=== PATIENT | female | born 1970 | race Caucasian/White ===

== ENCOUNTER 2018-11-06 08:00 | Outpatient (CLI) | payer OTHER ==
[2018-11-06 19:39] LABS: EOSINOPHILS # (AUTO) 0.1 10^3/uL (0.0-0.7); HGB - HEMOGLOBIN 9.2 g/dL (12.0-16.0); LYMPHOCYTES % (AUTO) 22.7 %; MEAN CORPUSCULAR HEMOGLOBIN 24.4 pg (27.0-31.0); MEAN CORPUSCULAR HGB CONC 30.4 g/dL (32.0-36.0); MEAN CORPUSCULAR VOLUME 80.1 fL (81.0-99.0); MEAN PLATELET VOLUME 10.4 fL (7.9-10.8); MONOCYTES # (AUTO) 0.3 10^3/uL (0.0-1.0); MONOCYTES % (AUTO) 7.4 %; NEUTROPHILS # (AUTO) 2.9 10^3/uL (1.5-6.6); NEUTROPHILS % (AUTO) 66.9 %; PLT - PLATELET COUNT 203 10^3/uL (130-450); RED BLOOD COUNT 3.79 10^6/uL (4.20-5.40); RED CELL DISTRIBUTION WIDTH 16.7 % (12.0-15.0); WHITE BLOOD COUNT 4.4 x10^3/uL (4.8-10.8)
[2018-11-06 20:25] LABS: ALBUMIN 4.2 g/dL (3.2-5.5); ALBUMIN/GLOBULIN RATIO 1.6 (1.0-2.2); ALKALINE PHOSPHATASE 40 IU/L (42-121); ALT ALANINE AMINOTRANSFERASE 12 IU/L (10-60); AST ASPARTATE AMINOTRANSFERASE 17 IU/L (10-42); BILIRUBIN,TOTAL 0.5 mg/dL (0.2-1.0); BUN - BLOOD UREA NITROGEN 10 mg/dL (6-20); CALCIUM 8.8 mg/dL (8.5-10.3); CARBON DIOXIDE - CO2 26 mmol/L (21-32); CHLORIDE 103 mmol/L (101-111); CHOL/HDL RATIO 1.9 (<4.4); CHOLESTEROL 164 mg/dL; CREATININE 0.5 mg/dL (0.4-1.0); GFR - MDRD 133 (>89); GLUCOSE 87 mg/dL (70-100); HDL CHOLESTEROL 86 mg/dL; LDL CHOLESTEROL,CALCULATED 63 mg/dL; LDL/HDL RATIO 0.7 (<4.4); SODIUM 137 mmol/L (135-145); TOTAL PROTEIN 6.9 g/dL (6.7-8.2); VLDL CHOLESTEROL 15 mg/dL
== END 2018-11-06 23:59 | disposition home or self-care (01) ==
LOC: LAB.WCP 08:00
PROVIDERS: ATTEND Family Medicine
DX: R07.89 Other chest pain (principal)
CPT/HCPCS: 36415; 80053; 80061; 83721; 85025

== ENCOUNTER 2022-10-11 10:10 | Day surgery (SDC) | payer OTHER ==
--- NOTE | 2022-10-11 07:59 | ANESTHESIA ---
Pre-Anesthesia VS, & Labs - Diagnosis screening - Procedure colonoscopy Height: 5 ft 7 in - NPO >8 hours Last Fluid Intake: am prep - Is Patient ?: No - Lab Results Lab results reviewed: Yes Home Medications and Allergies Home Medications: Ambulatory Orders Aspirin [[place] Aspirin] 81 mg PO DAILY 10/10/22 Aspirin [[place] Aspirin] 81 mg PO DAILY 10/10/22 Allergies/Adverse Reactions: Allergies Allergy/AdvReac Type Severity Reaction Status Date / Time No Known Drug Allergies Allergy Verified 10/10/22 13:00 Anes History & Medical History - Anesthetic History Anesthesia Complications: reports: No previous complications Family history of Anesthesia Complications: Denies Family history of Malignant Hyperthermia: Denies - Medical History Cardiovascular: reports: Other Pulmonary: reports: None Gastrointestinal: reports: None Urinary: reports: None Musculoskeletal: reports: None Endocrine/Autoimmune: reports: None Skin: reports: None - Surgical History Gynecologic: reports: Tubal ligation Exam General: Alert, Oriented x3, Cooperative Dental: WNL Mouth Openin Fingerbreadth Neck Mobility: Normal Mallampati classification: II Thyromental Distance: 4-6 cm Respiratory: Lungs clear, Normal breath sounds, No respiratory distress Cardiovascular: Regular rate Neurological: Normal speech Mental/Cognitive Status: Alert/Oriented X3, Normal for patient Cognitive Status: Within normal limits Plan Anesthesia Type: Total IV Consent for Procedure(s) Verified and Reviewed: Yes Code Status: Attempt Resuscitation ASA classification: 1-Healthy patient Is this case an emergency?: No
[2022-10-11] MEDS ORDERED: LACTATED RINGERS 1,000 ML IV ONE ×2 (10:54→13:29)
[2022-10-11] MEDS ORDERED: PROPOFOL 500 MG/50 ML 500 MG/50 ML VIAL ONE (11:49)
[2022-10-11] MEDS ORDERED: MIDAZOLAM 2 MG/2 ML VIAL ONE (11:51)
[2022-10-11] MEDS ORDERED: LIDOCAINE-PF 2% 10 ML AMP SUBQ ONE (13:05)
[2022-10-11 13:54] VITALS: BP 114/72
--- NOTE | 2022-10-11 14:43 | ANESTHESIA POST OP EVALUATION ---
Anesthesia Post Eval - Post Anesthesia Eval Vitals: Last Vital Signs Temp 36.7 C 10/11/22 13:29 Pulse 56 L 10/11/22 13:54 Resp 15 10/11/22 13:54 BP 114/72 10/11/22 13:54 Pulse Ox 100 10/11/22 13:54 O2 Flow Rate CV Function Including HR & BP: Stable Pain Control: Satisfactory Nausea & Vomiting: Negative Mental Status: Baseline Respiratory Status: Airway Patent Hydration Status: Satisfactory Anesthesia Complications: None
== END 2022-10-11 10:11 | disposition home or self-care (01) ==
LOC: SDS 10:10
PROVIDERS: ATTEND Surgery
DX: Z12.11 Encounter for screening for malignant neoplasm of colon (principal); K64.9 Unspecified hemorrhoids; Z80.0 Family history of malignant neoplasm of digestive organs
CPT/HCPCS: 45378; J7120

== ENCOUNTER 2022-11-13 12:52 | Outpatient (CLI) | payer OTHER | END 2022-11-13 12:53 | disposition home or self-care (01) | LOC: CAM 12:52 | PROVIDERS: ATTEND Physician Assistant | DX: F41.8 Other specified anxiety disorders (principal) | CPT/HCPCS: 97810; 97811 ==

== ENCOUNTER 2022-12-04 13:00 | Outpatient (CLI) | payer OTHER | END 2022-12-04 13:01 | disposition home or self-care (01) | LOC: CAM 13:00 | PROVIDERS: ATTEND Physician Assistant | DX: F41.8 Other specified anxiety disorders (principal) | CPT/HCPCS: 97810; 97811 ==

== ENCOUNTER 2022-12-25 14:29 | Outpatient (CLI) | payer OTHER | END 2022-12-25 14:30 | disposition home or self-care (01) | LOC: CAM 14:29 | PROVIDERS: ATTEND Physician Assistant | DX: F41.8 Other specified anxiety disorders (principal) | CPT/HCPCS: 97810; 97811 ==

== ENCOUNTER 2023-01-08 15:41 | Outpatient (CLI) | payer OTHER | END 2023-01-08 15:42 | disposition home or self-care (01) | LOC: CAM 15:41 | PROVIDERS: ATTEND Physician Assistant | DX: F41.8 Other specified anxiety disorders (principal) | CPT/HCPCS: 97810; 97811 ==

== ENCOUNTER 2023-01-29 14:26 | Outpatient (CLI) | payer OTHER | END 2023-01-29 14:27 | disposition home or self-care (01) | LOC: CAM 14:26 | PROVIDERS: ATTEND Physician Assistant | DX: F41.8 Other specified anxiety disorders (principal) | CPT/HCPCS: 97810; 97811 ==

== ENCOUNTER 2023-02-12 15:43 | Outpatient (CLI) | payer OTHER | END 2023-02-12 15:44 | disposition home or self-care (01) | LOC: CAM 15:43 | PROVIDERS: ATTEND Physician Assistant | DX: F41.8 Other specified anxiety disorders (principal) | CPT/HCPCS: 97810; 97811 ==

== ENCOUNTER 2023-04-30 13:07 | Outpatient (CLI) | payer OTHER | END 2023-04-30 13:08 | disposition home or self-care (01) | LOC: CAM 13:07 | PROVIDERS: ATTEND Physician Assistant | DX: F41.8 Other specified anxiety disorders (principal) | CPT/HCPCS: 97810; 97811 ==

== ENCOUNTER 2023-06-18 15:41 | Outpatient (CLI) | payer OTHER | END 2023-06-18 15:42 | disposition home or self-care (01) | LOC: CAM 15:41 | PROVIDERS: ATTEND Physician Assistant | DX: F06.4 Anxiety disorder due to known physiological condition (principal); F41.8 Other specified anxiety disorders | CPT/HCPCS: 97810; 97811 ==

== ENCOUNTER 2023-08-31 08:35 | Outpatient (CLI) | payer OTHER ==
[2023-08-31 08:44] LABS: BASOPHILS % (AUTO) 1.3 %; EOSINOPHILS # (AUTO) 0.1 10^3/uL (0.0-0.7); EOSINOPHILS % (AUTO) 4.3 %; HCT - HEMATOCRIT 40.2 % (37.0-47.0); LYMPHOCYTES # (AUTO) 1.3 10^3/uL (1.5-3.5); LYMPHOCYTES % (AUTO) 43.8 %; MEAN CORPUSCULAR HEMOGLOBIN 31.8 pg (27.0-31.0); MEAN CORPUSCULAR HGB CONC 32.3 g/dL (32.0-36.0); MEAN CORPUSCULAR VOLUME 98.3 fL (81.0-99.0); MEAN PLATELET VOLUME 11.4 fL (7.9-10.8); MONOCYTES # (AUTO) 0.2 10^3/uL (0.0-1.0); MONOCYTES % (AUTO) 5.6 %; NEUTROPHILS # (AUTO) 1.4 10^3/uL (1.5-6.6); PLT - PLATELET COUNT 166 10^3/uL (130-450); RED BLOOD COUNT 4.09 10^6/uL (4.20-5.40); RED CELL DISTRIBUTION WIDTH 12.6 % (12.0-15.0)
[2023-08-31 09:01] LABS: ALBUMIN 4.5 g/dL (3.2-5.5); ALBUMIN/GLOBULIN RATIO 1.9 (1.0-2.2); ALKALINE PHOSPHATASE 62 IU/L (42-121); ALT ALANINE AMINOTRANSFERASE 10 IU/L (10-60); AST ASPARTATE AMINOTRANSFERASE 13 IU/L (10-42); BILIRUBIN,TOTAL 0.9 mg/dL (0.2-1.0); BUN - BLOOD UREA NITROGEN 6 mg/dL (6-20); CALCIUM 9.5 mg/dL (8.5-10.3); CARBON DIOXIDE - CO2 31 mmol/L (21-32); CHLORIDE 106 mmol/L (101-111); CHOLESTEROL 183 mg/dL; CREATININE 0.6 mg/dL (0.6-1.3); GFR - MDRD 105 (>89); GLUCOSE 96 mg/dL (74-104); HDL CHOLESTEROL 91 mg/dL; LDL CHOLESTEROL,CALCULATED 78 mg/dL; LDL/HDL RATIO 0.9 (<4.4); POTASSIUM 4.1 mmol/L (3.5-4.5); SODIUM 141 mmol/L (135-145); TOTAL PROTEIN 6.9 g/dL (6.4-8.9); TRIGLYCERIDES 72 mg/dL (48-352); VLDL CHOLESTEROL 14 mg/dL
== END 2023-08-31 08:36 | disposition home or self-care (01) ==
LOC: LAB 08:35
PROVIDERS: ATTEND Physician Assistant Medical
DX: Z00.00 Encounter for general adult medical examination without abnormal findings (principal); E53.8 Deficiency of other specified B group vitamins
CPT/HCPCS: 36415; 80053; 80061; 82607; 83721; 84443; 85025